=== PATIENT | female | born 1965 | race Caucasian/White ===

== ENCOUNTER 2024-04-12 00:55 | Emergency (ER) | payer OTHER, SELFPAY ==
[2024-04-12 00:57] VITALS: BP 132/77; BMI 19.6
[2024-04-12 01:10] LABS: % Basophils 0.5 % (0-2); % Eosinophils 1.6 % (0-6); % Immature Granulocytes 0.3 % (0-0.5); % Lymphocytes 19.5 % (20.5-51.1); % Monocytes 6.2 % (1.7-9.3); % Neutrophils 71.9 % (42.2-75.2); Absolute Basophils 0.1 10^3/uL (0-0.2); Absolute Eosinophils 0.2 10^3/uL (0-0.7); Absolute Lymphocytes 2.1 10^3/uL (1.2-3.4); Absolute Monocytes 0.7 10^3/uL (0.1-0.6); Absolute Neutrophils 7.6 10^3/uL (1.4-6.5); Hemoglobin 12.9 g/dL (12.0-16.0); Mean Corp Hgb Conc. 35.8 g/dL (33.0-37.0); Mean Corpuscular Hgb 30.4 pg (27.0-31.0); Mean Corpuscular Volume 84.7 fL (81.0-99.0); Mean Platelet Volume 9.1 fL (7.4-10.4); Nucleated Red Blood Cells % 0 %; Platelet Count 293 10^3/uL (130-400); Red Blood Cell Count 4.25 10^6/uL (4.20-5.40); Red Cell Dist. Width 13.6 % (11.5-14.5); White Blood Cell Count 10.6 10^3/uL (4.8-10.8)
--- NOTE | 2024-04-12 01:26 | ED.GENMED ---
History of Present Illness
<TRACY Duncan - Last Filed: 04/12/24 02:54>
General
Chief Complaint: Abdominal Pain
Time Seen by Provider: 04/12/24 01:04
History of Present Illness
History of Present Illness:
Patient is a 58 y/o female with PMHx HTN, HLD, mitral regurgitation, and migraines presenting for right sided abdominal pain x4 hours. Patient states that she ate fried chicken for dinner and then began experiencing intermittent right sided flank
pain. She states the pain started started in waves before becoming more frequent. She states she then began to experience the pain in her RUQ saying it felt like an 'ice pick' going through her RUQ to right flank. She states the pain became a
constant, sharp, 10/10 in the RUQ. She states that after getting Toradol the pain is a 7/10. She also states she has associated nausea without vomiting that began with the pain. She states she had similar symptom in 2011 and she was told she has
'sludge in her gallbladder.' She denies any fevers, CP, urinary symptoms, or change in bowel habits,
Past History
<TRACY Duncan - Last Filed: 04/12/24 02:54>
Past History
ED Past Medical History: Asthma, HTN, Hypercholesterolemia and Other
ED Past Surgical History: None, Gynecological and Orthopedic
Social History
Tobacco: Non-smoker
Alcohol: Occasional
Personal:
Living: with family
Employment: Employed
Phy Exam
<TRACY Duncan - Last Filed: 04/12/24 02:54>
Physical Exam
Physical Exam:
GENERAL: Patient appears uncomfortable secondary to pain.
EYE: pupils equal and reactive
Throat: Airway intact, no exudates
NECK: Supple, no significant adenopathy.
CARDIAC: Regular rate and rhythm .
LUNGS: Clear breath sounds bilaterally, no acute respiratory distress, no wheezes/rales/rhonchi
ABDOMEN: Pain with palpation to the right side of the abdomen worse in the RUQ. Positive Lizarraga's. Abdomen is soft and nondistended. Positive right sided CVAT.
NEUROLOGICAL: Alert and oriented, no focal neuro deficits
SKIN: Warm and dry, skin intact.
MUSCULOSKELETAL: No edema, well perfused.
PSYCH: Normal and appropriate interaction.
Course
<ST [place] - Last Filed: 04/12/24 02:54>
Orders/Labs/Results
Orders:
Orders
04/12/24 00:56
IV Insert/Care/Rem.- Treatment PRN
04/12/24 01:02
Complete Blood Count/With Diff Urgent
Comprehensive Metabolic Panel Urgent
Lipase Urgent
04/12/24 01:25
US Abdomen Complete/Upper Urgent
Comment:
Reason For Exam: RUQ abd pain
04/12/24 01:34
HYDROmorphone [Dilaudid] 0.5 mg .ROUTE .STK-MED ONE
04/12/24 01:35
HYDROmorphone [Dilaudid] 0.5 mg IV NOW STA
04/12/24 02:41
HYDROmorphone [Dilaudid] 0.5 mg IV NOW STA
04/12/24 02:48
Urinalysis Reflex To Culture Urgent
Date Specimen was Collected: 04/12/24
Time Specimen was Collected: 00:56
Urine Microscopic Reflex Cult Urgent
04/12/24 03:48
CT Abd/pelvis W Iv Cont Urgent
Comment:
Reason For Exam: right abd pain
Abnormal Lab Results
04/12/24 04/12/24
01:02 02:48
Hct 36.0 L %
(37.0-47.0)
Absolute Neuts (auto) 7.6 H 10^3/uL
(1.4-6.5)
Absolute Monos (auto) 0.7 H 10^3/uL
(0.1-0.6)
Lymphocytes % 19.5 L %
(20.5-51.1)
Sodium 134 L mmol/L
(135-145)
BUN 27 H mg/dl
(7-17)
Glucose 116 H mg/dl
(70-99)
Calcium 10.6 H mg/dl
(8.4-10.2)
Leukocyte Esterase Rfl Trace A
(Negative)
Urine Bacteria (Reflex) Few A
(Negative)
04/12/24 01:02
04/12/24 01:02
Vital Signs
Initial and Last Documented VS:
Initial Vital Signs
Temp Pulse Resp BP Pulse Ox
98.9 F 82 18 132/77 98
04/12/24 00:57 04/12/24 00:57 04/12/24 00:57 04/12/24 00:57 04/12/24 00:57
Last Documented Vital Signs
Temp Pulse Resp BP Pulse Ox
98.9 F 66 15 109/61 92
04/12/24 00:57 04/12/24 04:00 04/12/24 04:00 04/12/24 04:00 04/12/24 04:00
<Mello Gill, - Last Filed: 04/12/24 05:26>
Orders/Labs/Results
Orders:
Orders
04/12/24 00:56
IV Insert/Care/Rem.- Treatment PRN
04/12/24 01:02
Complete Blood Count/With Diff Urgent
Comprehensive Metabolic Panel Urgent
Lipase Urgent
04/12/24 01:25
US Abdomen Complete/Upper Urgent
Comment:
Reason For Exam: RUQ abd pain
04/12/24 01:34
HYDROmorphone [Dilaudid] 0.5 mg .ROUTE .STK-MED ONE
04/12/24 01:35
HYDROmorphone [Dilaudid] 0.5 mg IV NOW STA
04/12/24 02:41
HYDROmorphone [Dilaudid] 0.5 mg IV NOW STA
04/12/24 02:48
Urinalysis Reflex To Culture Urgent
Date Specimen was Collected: 04/12/24
Time Specimen was Collected: 00:56
Urine Microscopic Reflex Cult Urgent
04/12/24 03:48
CT Abd/pelvis W Iv Cont Urgent
Comment:
Reason For Exam: right abd pain
Abnormal Lab Results
04/12/24 04/12/24
01:02 02:48
Hct 36.0 L %
(37.0-47.0)
Absolute Neuts (auto) 7.6 H 10^3/uL
(1.4-6.5)
Absolute Monos (auto) 0.7 H 10^3/uL
(0.1-0.6)
Lymphocytes % 19.5 L %
(20.5-51.1)
Sodium 134 L mmol/L
(135-145)
BUN 27 H mg/dl
(7-17)
Glucose 116 H mg/dl
(70-99)
Calcium 10.6 H mg/dl
(8.4-10.2)
Leukocyte Esterase Rfl Trace A
(Negative)
Urine Bacteria (Reflex) Few A
(Negative)
04/12/24 01:02
04/12/24 01:02
Vital Signs
Initial and Last Documented VS:
Initial Vital Signs
Temp Pulse Resp BP Pulse Ox
98.9 F 82 18 132/77 98
04/12/24 00:57 04/12/24 00:57 04/12/24 00:57 04/12/24 00:57 04/12/24 00:57
Last Documented Vital Signs
Temp Pulse Resp BP Pulse Ox
98.9 F 66 15 109/61 92
04/12/24 00:57 04/12/24 04:00 04/12/24 04:00 04/12/24 04:00 04/12/24 04:00
<TRACY Duncan - Last Filed: 04/12/24 02:54>
*Radiology
Radiology exam reviewed: radiology read reviewed
*Pulse Oximetry
Patient hypoxic: no
*EKG
Interpreted by ED Provider?: NA
*Packaging Inspector Interpretation
Rate: Packaging Inspector- N/A
*Critical Care Note
Total Time (30-74mins, 75-104mins- exclusive of procedures): Not Applicable
<Mello Gill DO - Last Filed: 04/12/24 05:26>
Update Note
Update Note:
Ultrasound abdomen complete
IMPRESSION:
Unremarkable exam
Gallbladder appears normal
No appreciable gallstones or sludge in the gallbladder
No gallbladder wall thickening or pericholecystic fluid
Negative sonographic Lizarraga's sign per report
CBD measures 5 mm in diameter which is upper limits of normal
Visualized pancreas and liver appear normal
Bilateral kidneys appear normal and are symmetric
Normal sized spleen
No appreciable free fluid
Report faxed directly at 2:20 AM ET
04/12/2024 0420 AM: Called over to CAT scan. Patient stated that the last time she had an injection, she had 'a reaction '. It was done at [facility]. No note able to be found regarding the situation. She states that the situation lasted
for under 30 seconds. She received no medications. She states that once the feeling passed, she was able to ambulate out of the radiology suite. She had no further issues. I asked her if she was okay with getting the injection and she said that
she would be okay with getting an injection of IV contrast
CT abdomen and pelvis with contrast
IMPRESSION:
No acute intra-abdominal or intrapelvic pathology
No findings to suggest right-sided abdominal pain
No acute bowel process.
Moderate stool burden, most pronounced in the right colon
Correlate for history of constipation
Normal appendix
Gallbladder, bile ducts, and pancreas appear normal
No obstructing ureteral calculus, hydronephrosis or signs of pyelonephritis
ED Attending Note
<TRACY Duncan - Last Filed: 04/12/24 02:54>
-
Portions of this chart may have been created with voice recognition software.� Occasional wrong word or��sound alike� substitutions may have occurred due to the inherent limitations of voice recognition software.
<Mello Gill DO - Last Filed: 04/12/24 05:26>
ED Attending Note
Patient seen and examined by attending physician: Yes
I performed the substantive portion of visit, reviewed & personally made and approve the management plan that is documented in note by myself or GABRIEL.: Yes
ED Attending Note:
This a pleasant 58-year-old female presents from home via EMS with right-sided abdominal pain. Patient states that the pain has been present for last 4 hours. She reports it came on immediately after eating greasy foods. Patient states the pain
is similar to previous biliary colic that was diagnosed in 2011. Patient describes the pain as sharp and stabbing. Patient was seen in conjunction with the PA student. I have reviewed and agree with the history and treatment plan presented. On
my independent physical exam, patient is awake, alert, and oriented x3, moderate acute distress. Positive rigidity and guarding. Negative McBurney's point tenderness. Negative Lizarraga sign. Abdomen is soft and nondistended.
Discharge Plan
Departure
Patient Disposition: Home (Routine Discharge)
Date of Disposition: 04/12/24
Time of Disposition: 05:23
Patient with high blood pressure during this ER visit?: No
Condition: Good
Discharge Problem:
Abdominal pain, Constipation
Instructions: Clear Liquid Diet, Constipation, Adult (DC), Abdominal Pain
Prescriptions:
No Action
montelukast 10 MG tablet
10 mg PO QPM
fluticasone propionate 1 SPRAY spray,suspension
2 spray intranasal HS
potassium chloride [Klor-Con M20] 20 MEQ tablet,ER particles/crystals
40 mcg PO DAILY
vitamin B complex 1 EACH tablet
1 ea PO HS
biotin [Hard Nails] 2,500 MCG capsule
2.5 mg PO HS
Livalo
2 mg PO QPM
multivitamin with minerals [One Daily Plus Minerals] 1 EACH tablet
1 ea PO HS
ascorbic acid (vitamin C) [Vitamin C] 1,000 MG tablet
1,000 mg PO HS
fexofenadine-pseudoephedrine [[place]-D 24 Hour] 1 EACH tablet extended release 24 hr
1 ea PO Q72H
cholecalciferol (vitamin D3) [Vitamin D3] 2,000 UNIT capsule
6,000 unit PO HS
Multi Collagen Protein
1 dose PO Q48H
clindamycin HCl 300 MG capsule
300 mg PO R QID 4 Days Qty: 16 0RF
sennosides [senna] 1 TABLET tablet
2 tab PO BID 0RF
prochlorperazine maleate 5 MG tablet
5 mg PO Q6HPRN PRN (Reason: n/v) Qty: 15 1RF
Rx Instructions:
take 1/2 hour before Dilaudid if recurrent nausea
acetaminophen [Tylenol Extra Strength] 500 MG tablet
1,000 mg PO Q6 0RF
docusate sodium 100 MG capsule
100 mg PO BID 0RF
valsartan 80 MG tablet
160 mg PO QPM Qty: 0 0RF
Patient Comments:
in pm
Rx Instructions:
hold systolic blood pressure <130
potassium chloride [Klor-Con] 20 MEQ packet
20 meq PO HS Qty: 0 0RF
Rx Instructions:
only take if taking Bumex
bumetanide 1 MG tablet
1 mg PO BID Qty: 1 0RF
Rx Instructions:
hold systolic blood pressure <130
cyclobenzaprine 10 MG tablet
10 mg PO HS PRN (Reason: mauscle pain/sleep) Qty: 15 0RF
hydromorphone 2 MG tablet
2 mg PO Q4HPRN PRN (Reason: moderate-severe pain) Qty: 45 0RF
Rx Instructions:
1 tab moderate pain or 2 if pain severe
dx tka
ongoing therapy
Referrals:
Adolfo Altamirano MD [Family Provider] -
Activity Restrictions/Additional Instructions:
It was a pleasure meeting you and taking part in your care. We hope for your continued healing and wellness.
Please read discharge instructions in their entirety. However, they are for general education and may not describe your exact diagnosis at discharge. Information on your ER visit and medical conditions were discussed with you along with appropriate
follow up information...
If indicated, please take your medications as instructed and indicated on discharge paperwork.
Please schedule a follow up appointment as directed. Call to schedule an appointment
Please return to the emergency department with ANY change in, persisting, or worsening of symptoms. If any of your symptoms do not improve, or persist, or become more severe within 6-12 hours, please return to the emergency department for further
care.
Please return to the emergency department if you develop a headache, neck pain/stiffness, fever greater than 100.4F, chest pain, shortness of breath, persistent nausea, vomiting, slurred speech, difficulty walking, numbness/tingling, weakness, signs
of infection or any other symptoms that are worrisome to you.
If you have any questions or concerns please do not hesitate to call the Hospital at or E-mail me directly at [email or web address]
Interventions
Interventions:
*Risk Screen - Suicide Last Done: 04/12/24 00:57
*General Assessment Last Done: 04/12/24 00:57
*Neglect/Abuse Screening Last Done: 04/12/24 00:57
*ED COVID-19 Vaccine History Last Done: 04/12/24 00:57
GR-Xnjeti-Oqnpavdxtn Assessment Last Done: 04/12/24 01:07
Discharge Date and Time
Print Language: BELARUSIAN
[2024-04-12] MEDS: DILAUDID 0.5 MG IV ×2 (01:36→02:53)
[2024-04-12 01:39] LABS: ALT (SGPT) 33 U/L (0-35); AST (SGOT) 30 U/L (14-36); Albumin 4.4 g/dl (3.5-5.0); Alkaline Phosphatase 59 U/L (38-126); Blood Urea Nitrogen 27 mg/dl (7-17); Calcium 10.6 mg/dl (8.4-10.2); Carbon Dioxide 29 mmol/L (22-30); Chloride 98 mmol/L (98-107); Estimated Creatinine Clearance 85 ml/min; Glucose 116 mg/dl (70-99); Lipase 258 U/L (23-300); Potassium 3.5 mmol/L (3.5-5.1); Sodium 134 mmol/L (135-145); Total Bilirubin 0.4 mg/dl (0.2-1.3); eGFR > 60.00
[2024-04-12 02:22] VITALS: BP 121/74
[2024-04-12 03:00] VITALS: BP 122/78
[2024-04-12 03:04] LABS: Urine Albumin Negative (Neg - Trace); Urine Bilirubin Negative (Negative); Urine Character Clear (Clear); Urine Color Yellow; Urine Glucose Negative (Negative); Urine Ketone Negative (Negative); Urine Leukocyte Trace (Negative); Urine Nitrite Negative (Negative); Urine Occult Blood Negative (Negative); Urine Specific Gravity 1.025 (<1.030); Urine Urobilinogen Negative (Neg - 1+)
[2024-04-12 03:18] LABS: Urine Bacteria Few (Negative); Urine Red Blood Cell 0-2 /HPF (0-2); Urine Squamous Cell 0-2 /LPF (Few)
[2024-04-12 04:00] VITALS: BP 109/61
[2024-04-12 05:00] VITALS: BP 96/54
[2024-04-12] MEDS: CITROMA 300 ML PO (05:37)
== END 2024-04-12 05:56 | disposition home or self-care (01) ==
LOC: EMR 00:55
PROVIDERS: EMERGENCY PHYSICIAN Student in an Organized Health Care Education/Training Program; FAMILY PHYSICIAN Internal Medicine
DX: R10.9 Unspecified abdominal pain (principal); K59.00 Constipation, unspecified; I10 Essential (primary) hypertension; E78.00 Pure hypercholesterolemia, unspecified; I34.0 Nonrheumatic mitral (valve) insufficiency; J45.909 Unspecified asthma, uncomplicated
CPT/HCPCS: 99284; 96374; 96376; 74177; 76700; 80053; 81003; 81015; 83690; 85025; Q9967

== ENCOUNTER → 2024-05-03 09:24 | Outpatient (REF) | payer OTHER, SELFPAY | LOC: RAD 09:24 | PROVIDERS: ATTENDING PHYSICIAN Nurse Practitioner Adult Health | DX: K59.00 Constipation, unspecified (principal); R10.11 Right upper quadrant pain | CPT/HCPCS: 74018 ==

== ENCOUNTER → 2024-06-27 08:02 | Outpatient (REF) | payer OTHER, SELFPAY | LOC: RAD 08:02 | PROVIDERS: ATTENDING PHYSICIAN Internal Medicine Cardiovascular Disease; FAMILY PHYSICIAN Nurse Practitioner Adult Health | DX: R06.09 Other forms of dyspnea (principal); R05.3 Chronic cough; R91.1 Solitary pulmonary nodule; I77.819 Aortic ectasia, unspecified site | CPT/HCPCS: 71260; 74170; Q9967 ==

== ENCOUNTER → 2024-07-18 10:51 | Outpatient (REF) | payer OTHER, SELFPAY | LOC: HWRAD 10:51 | PROVIDERS: ATTENDING PHYSICIAN Nurse Practitioner Adult Health | DX: E04.1 Nontoxic single thyroid nodule (principal) | CPT/HCPCS: 76536 ==

== ENCOUNTER → 2024-08-27 10:54 | Outpatient (REF) | payer OTHER, SELFPAY | LOC: WDC 10:54 | PROVIDERS: ATTENDING PHYSICIAN Nurse Practitioner Adult Health | DX: Z12.31 Encounter for screening mammogram for malignant neoplasm of breast (principal) | CPT/HCPCS: 77063; 77067 ==

== ENCOUNTER → 2025-08-29 12:04 | Outpatient (REF) | payer OTHER, SELFPAY | LOC: WDC 12:04 | PROVIDERS: ATTENDING PHYSICIAN Nurse Practitioner Adult Health; FAMILY PHYSICIAN Internal Medicine | DX: R91.8 Other nonspecific abnormal finding of lung field (principal); Z12.31 Encounter for screening mammogram for malignant neoplasm of breast | CPT/HCPCS: 71250 ==